=== PATIENT | female | born 1940 | race Caucasian/White ===

== ENCOUNTER 2019-07-01 18:53 | Emergency (ER) | payer OTHER ==
[~2019-07-01] VITALS: Ht 170.2 cm; Wt 57.3 kg
[2019-07-01 18:55] VITALS: Ht 170.2 cm; Wt 57.3 kg
[2019-07-01] MEDS ORDERED: LIDOCAINE 1% (MPF) 5 ML VIAL ONE (20:45)
[2019-07-01 21:30] VITALS: BP 120/67; PULSE 70; RESP 18
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
== END 2019-07-02 01:26 | disposition home or self-care (01) ==
LOC: E/R 18:53
DX: S01.81XA Laceration without foreign body of other part of head, initial encounter (principal); R40.2142 Coma scale, eyes open, spontaneous, at arrival to emergency department; R40.2252 Coma scale, best verbal response, oriented, at arrival to emergency department; R40.2362 Coma scale, best motor response, obeys commands, at arrival to emergency department; W22.8XXA Striking against or struck by other objects, initial encounter; Y92.9 Unspecified place or not applicable; Z86.73 Personal history of transient ischemic attack (TIA), and cerebral infarction without residual deficits
CPT/HCPCS: 36415; 70450; 72125; 80048; 85025; 85610; 85730